=== PATIENT | female | born 1950 | race Caucasian/White ===

== ENCOUNTER 2018-11-13 08:01 | Outpatient (CLI) | payer MEDICARE ==
--- NOTE | 2018-11-13 09:00 | ULT ---
PELVIC ULTRASOUND: History: Pelvic pain and fullness. FINDINGS: Real-time imaging of the pelvis was obtained transabdominally as well as with an endovaginal probe. T his shows a uterus measuring 3.8 x 6 x 6.4 cm. There is fluid within the endometrium. Within the fundus region is a 3.1 cm fibroid. There is a complex nabothian cyst incidentally seen. The right and left adnexa are normal in appearance. DOPPLER EVALUATION WITH SPECTRAL ANALYSIS: Normal flow is seen within the adnexa. IMPRESSION: 1. 3.1 cm uterine fibroid. 2. Mild amount of fluid is seen within the endometrium. POS: [facility]
== END 2018-11-13 08:02 | disposition home or self-care (01) ==
LOC: SCSULT 08:01
PROVIDERS: ATTEND Internal Medicine Gastroenterology
DX: R19.8 Other specified symptoms and signs involving the digestive system and abdomen (principal); R19.4 Change in bowel habit; D25.9 Leiomyoma of uterus, unspecified; N85.9 Noninflammatory disorder of uterus, unspecified
CPT/HCPCS: 76856